=== PATIENT | male | born 1955 | race African-American/Black ===

== ENCOUNTER 2017-08-31 12:39 | Emergency (ER) | payer OTHER ==
[2017-08-31 14:12] LABS: AGAP ISTAT 17 mmol/L (6-14); BUN ISTAT 16 mg/dL (8-26); CHLORIDE ISTAT 104 mmol/L (98-110); CREATININE ISTAT 1.5 mg/dL (0.5-1.4); GLUCOSE ISTAT 114 mg/dL (70-99); HEMATOCRIT ISTAT 48 % (37-52); HEMOGLOBIN ISTAT 16.3 g/dL (14-18); ION CA ISTAT 1.21 mmol/L (1.13-1.32); POTASSIUM ISTAT 3.9 mmol/L (3.5-5.0); SODIUM ISTAT 143 mmol/L (135-145); TOT CO2 ISTAT 27 mmol/L (23-32)
[2017-08-31] MEDS ORDERED: CONTRAST GIVEN MC (14:15)
[2017-08-31] MEDS: IOHEXOL 300 MG/ML 100ML VIAL. IV (14:18)
[2017-08-31] MEDS: TETRACAINE 0.5% OPHTH SOLUTION 4ML BOTTLE. OU (14:30)
[2017-08-31] MEDS: FLUORESCEIN OPHTH TEST STRIP. OU (14:30)
== END 2017-08-31 15:46 | disposition home or self-care (01) ==
LOC: ER 12:39
DX: H10.9 Unspecified conjunctivitis (principal); I10 Essential (primary) hypertension
CPT/HCPCS: 70450; 70481; 80047; 99284-25; Q9967